=== PATIENT | male | born 1980 | race Hispanic/Latino ===

== ENCOUNTER 2020-03-15 08:40 | Inpatient (IN) | payer OTHER ==
[~2020-03-15] VITALS: Ht 170.2 cm; Wt 60.4 kg
[2020-03-15 09:05] LABS: BASOPHILS % (AUTO) 1.3 % (0.0-5.0); EOSINOPHILS % (AUTO) 10.9 % (0.0-8.0); HEMATOCRIT 29.7 % (42-54); LYMPHOCYTES % (AUTO) 21.9 % (21.0-51.0); MEAN CORPUSCULAR HEMOGLOBIN 29.9 pg (27.0-33.0); MEAN CORPUSCULAR HGB CONC 32.7 g/dL (32.0-36.0); MEAN CORPUSCULAR VOLUME 91.7 fL (79-99); MONOCYTES % (AUTO) 5.7 % (3.0-13.0); NEUTROPHILS % (AUTO) 59.9 % (40.0-77.0); PLATELET COUNT (AUTO) 323 K/uL (130-400); RED BLOOD CELL COUNT(AUTO) 3.24 MIL/uL (4.50-6.20); RED CELL DISTRIBUTION WIDTH 14.6 % (11.0-15.5)
[2020-03-15 09:14] LABS: CREATININE 4.7 mg/dL (0.5-1.5); POTASSIUM 4.1 mmol/L (3.5-5.1)
[2020-03-15 09:19] LABS: BILIRUBIN,TOTAL 0.3 mg/dL (0.2-1.0); TOTAL PROTEIN, SERUM 7.3 g/dL (6.0-8.3)
[2020-03-15 09:20] LABS: INR 0.92 (0.85-1.15); PARTIAL THROMBOPLASTIN TIME 26.6 SEC (26.3-35.5)
[2020-03-15] MEDS ORDERED: NITROGLYCERIN 1GM/1 INCH PACKET TD ONE (09:59)
[2020-03-15] MEDS ORDERED: ONDANSETRON HCL 4 MG/2 ML VIAL IV PRN (11:15)
[2020-03-15] MEDS ORDERED: ACETAMINOPHEN 325 MG TAB PO PRN (11:15)
[2020-03-15] MEDS ORDERED: NITROGLYCERIN 0.4 MG SL TAB SL PRN (11:15)
[2020-03-15] MEDS: INSULIN HUMULIN R 100 UNIT/ML 3ML SQ SCH ×3 (11:30→21:00)
[2020-03-15] MEDS: HEPARIN SODIUM 5000UNIT/ML 1ML VIAL SQ SCH ×2 (14:00→22:20)
[2020-03-15] MEDS ORDERED: INSULIN HUMULIN R 100 UNIT/ML 3ML ONE (18:28)
[2020-03-15] MEDS ORDERED: FAMOTIDINE 20MG TAB 20 MG TAB ONE (20:04)
[2020-03-15] MEDS ORDERED: AMLODIPINE BESYLATE 5 MG TAB ONE (20:04)
[2020-03-15] MEDS: FAMOTIDINE 20MG TAB 20 MG TAB PO SCH (21:00)
[2020-03-15 21:30] VITALS: BP 198/101
[2020-03-15] MEDS ORDERED: FURO40TA5 PO (22:12)
[2020-03-15] MEDS ORDERED: CARV6.25 PO (22:12)
[2020-03-15] MEDS ORDERED: GABA-529 PO (22:12)
--- NOTE | 2020-03-15 22:40 | NUR ---
notified isaiah rodriguez personally about patient's blood pressure of 198/106. she ordered to start carvedilol tonight and i gave 1 tablet it at 22:40. recheck of his blood pressure is 201/96 with heart rate 98. will give labetalol iv 2.5 mg at 23:30.
[2020-03-15] MEDS ORDERED: ASPIRIN 81 MG EC TAB ONE (22:52)
[2020-03-15] MEDS: ASPIRIN 81 MG EC TAB PO SCH (23:00)
[2020-03-15] MEDS: METOPROLOL TARTRATE 1 MG/ML 5ML VIAL IV SCH (23:34)
[2020-03-16 00:45] VITALS: BP 138/77
[2020-03-16 04:04] VITALS: BP 176/86
[2020-03-16 05:09] LABS: BASOPHILS % (AUTO) 1.4 % (0.0-5.0); EOSINOPHILS % (AUTO) 5.2 % (0.0-8.0); LYMPHOCYTES % (AUTO) 26.3 % (21.0-51.0); MEAN CORPUSCULAR HEMOGLOBIN 29.9 pg (27.0-33.0); MEAN CORPUSCULAR HGB CONC 33.5 g/dL (32.0-36.0); MEAN CORPUSCULAR VOLUME 89.3 fL (79-99); MONOCYTES % (AUTO) 6.3 % (3.0-13.0); NEUTROPHILS % (AUTO) 60.5 % (40.0-77.0); PLATELET COUNT (AUTO) 280 K/uL (130-400); RED BLOOD CELL COUNT(AUTO) 2.91 MIL/uL (4.50-6.20); RED CELL DISTRIBUTION WIDTH 14.2 % (11.0-15.5); WHITE BLOOD COUNT (AUTO) 7.3 K/uL (4.8-10.8)
[2020-03-16 05:18] LABS: B-TYPE NATRIURETIC PEPTIDE 1910 pg/mL (0-100)
[2020-03-16 05:27] LABS: HEMOGLOBIN A1C 10.6 % (4.0-6.0)
[2020-03-16 05:44] LABS: ALBUMIN 2.3 g/dL (3.5-5.0); BILIRUBIN,TOTAL 0.3 mg/dL (0.2-1.0); CREATININE 3.2 mg/dL (0.5-1.5); MAGNESIUM 2.1 mg/dL (1.80-2.40); PHOSPHORUS 5.2 mg/dL (2.5-4.9); POTASSIUM 3.6 mmol/L (3.5-5.1); TOTAL PROTEIN, SERUM 6.2 g/dL (6.0-8.3)
[2020-03-16] MEDS: INSULIN HUMULIN R 100 UNIT/ML 3ML SQ SCH ×7 (06:24→20:10)
[2020-03-16] MEDS ORDERED: LABETALOL HCL 5 MG/ML 20ML VIAL IV PRN (07:00)
[2020-03-16] MEDS: INSULIN GLARGINE 100 UNITS/ML 10 ML VIAL SQ SCH ×2 (07:05→20:02)
[2020-03-16 08:15] VITALS: BP 164/93
[2020-03-16] MEDS: FAMOTIDINE 20MG TAB 20 MG TAB PO SCH ×2 (08:49→20:03)
[2020-03-16] MEDS: FUROSEMIDE 40 MG TABLET PO SCH (08:50)
[2020-03-16] MEDS: CARVEDILOL 6.25 MG TABLET PO SCH ×2 (08:50→20:03)
[2020-03-16] MEDS: ASPIRIN 81 MG EC TAB PO SCH (08:50)
[2020-03-16] MEDS: HEPARIN SODIUM 5000UNIT/ML 1ML VIAL SQ SCH ×3 (08:51→20:01)
[2020-03-16 11:39] VITALS: BP 164/106
--- NOTE | 2020-03-16 14:24 | NUR ---
CM NOTE/IA MET WITH PATIENT AT BEDSIDE. PER PATIENT, IS INDEPENDENT WITH ADLS, LIVES WITH MOTHER+NEPHEWSX2 AND NIECE, HAS USE OF ROLLATOR WALKER AND SHOWER CHAIR, ATTENDS [facility], OBTAINS RIDES FOR DIALYSIS FROM MOTHER AND FEELS SAFE TO RETURN HOME ONCE DISCHARGED. PER PATIENT, PCP IS DR. PAUL SCHAEFER AT [facility]. CORRECT MOTHERS PHONE NUMBER IS FOLLOWS: BRANDY MICHEL [phone]. PATIENT CONFIRMED SELF PAY STATUS, [facility] GIVEN WELL SELF REFERRAL/SELF MEDICAL PACKETS. PER PATIENT VERBALIZED UNDERSTANDING AND HAS [facility] ON HIS PHONE. Addendum: 03/16/20 at 1428 by KI MCELROY RN CM Amended: Links added.
[2020-03-16 17:16] VITALS: BP 160/104
[2020-03-16 19:00] VITALS: BP 163/103
[2020-03-16] MEDS: METOPROLOL TARTRATE 1 MG/ML 5ML VIAL IV SCH (22:46)
[2020-03-17] VITALS: BP 154/96
[2020-03-17 04:00] VITALS: BP 179/100
[2020-03-17 04:39] LABS: BASOPHILS % (AUTO) 1.1 % (0.0-5.0); EOSINOPHILS % (AUTO) 10.1 % (0.0-8.0); HEMATOCRIT 29.8 % (42-54); LYMPHOCYTES % (AUTO) 33.8 % (21.0-51.0); MEAN CORPUSCULAR HEMOGLOBIN 29.7 pg (27.0-33.0); MEAN CORPUSCULAR HGB CONC 33.2 g/dL (32.0-36.0); MEAN CORPUSCULAR VOLUME 89.5 fL (79-99); MONOCYTES % (AUTO) 5.7 % (3.0-13.0); NEUTROPHILS % (AUTO) 49.1 % (40.0-77.0); PLATELET COUNT (AUTO) 306 K/uL (130-400); RED BLOOD CELL COUNT(AUTO) 3.33 MIL/uL (4.50-6.20); RED CELL DISTRIBUTION WIDTH 14.6 % (11.0-15.5)
[2020-03-17 05:15] LABS: ALBUMIN 2.6 g/dL (3.5-5.0); BILIRUBIN,TOTAL 0.3 mg/dL (0.2-1.0); CREATININE 4.1 mg/dL (0.5-1.5); POTASSIUM 3.7 mmol/L (3.5-5.1); TOTAL PROTEIN, SERUM 6.6 g/dL (6.0-8.3)
[2020-03-17] MEDS: INSULIN HUMULIN R 100 UNIT/ML 3ML SQ SCH ×5 (06:06→15:07)
[2020-03-17 07:16] LABS: HEPATITIS A ANTIBODY IGM Negative (Negative); HEPATITIS B CORE IGM Negative (Negative); HEPATITIS Bs ANTIGEN SCREEN P Negative (Negative)
--- NOTE | 2020-03-17 07:30 | NUR ---
ASSESSMENT NOTE PT IS AAOX4 , HAS NO CP OR, SOB, VOICES NO PAIN AT THIS TIME, WILL BE RECEIVING HD TODAY.
[2020-03-17 08:37] VITALS: BP 200/115
[2020-03-17] MEDS: CARVEDILOL 6.25 MG TABLET PO SCH (08:43)
[2020-03-17] MEDS: ASPIRIN 81 MG EC TAB PO SCH (08:43)
[2020-03-17] MEDS: FAMOTIDINE 20MG TAB 20 MG TAB PO SCH (08:43)
[2020-03-17] MEDS: FUROSEMIDE 40 MG TABLET PO SCH (08:43)
[2020-03-17] MEDS: HEPARIN SODIUM 5000UNIT/ML 1ML VIAL SQ SCH ×2 (08:55→13:44)
[2020-03-17] MEDS ORDERED: AEC81 PO (09:47)
[2020-03-17 11:35] VITALS: BP 177/101
--- NOTE | 2020-03-17 14:10 | NUR ---
HD ENDED DIALYSIS REMOVED 4 LITERS IN 3 HRS, VS; B/P 180/99, HR 92, TEMP 98.0, NO COMPLAINTS OF PAIN, SOB, OR CP.
[2020-03-17] MEDS ORDERED: INSULIN HUMULIN R 100 UNIT/ML 3ML SQ SCH (15:00)
[2020-03-17] MEDS ORDERED: GLIP5TAB11 PO (15:01)
--- NOTE | 2020-03-17 15:30 | NUR ---
D/C PT IS AAOX4,VS STABLE, DR. SRINIVASAN IS TO F/U WITH PRIMARY 2-[address] VEE 1-2 WEEKS, BS 317 AND GIVE [address] UN[address] MORAN. PT GIVEN D/C INSTRUCTIONS, AND NEW RX MEDS TRANSMITTED TO HIS RX, PT LEFT VIA WHEEL CHAIR IN PVT CAR. NO COMPLICATIONS UPON D/C .
--- NOTE | 2020-03-20 10:38 | NUR ---
Transitional Care -- Post-Discharge Note Called patient at primary phone number on file. Female voice answered stating patient had been admitted to [facility].
== END 2020-03-17 15:55 | disposition home or self-care (01) | DRG 640 ==
LOC: EDH 08:40 → EDHIP 08:41 → 3CH 21:08
PROVIDERS: ADMIT Family Medicine; ATTEND Family Medicine
PROC: 5A1D70Z Performance of Urinary Filtration, Intermittent, Less than 6 Hours Per Day (ICD-10-PCS; principal; 2020-03-15)
PROC: 5A1D70Z Performance of Urinary Filtration, Intermittent, Less than 6 Hours Per Day (ICD-10-PCS; 2020-03-17)
DX: E87.70 Fluid overload, unspecified (principal); N18.6 End stage renal disease; I12.0 Hypertensive chronic kidney disease with stage 5 chronic kidney disease or end stage renal disease; J81.1 Chronic pulmonary edema; E11.22 Type 2 diabetes mellitus with diabetic chronic kidney disease; Z20.828 Contact with and (suspected) exposure to other viral communicable diseases; D63.1 Anemia in chronic kidney disease; I16.0 Hypertensive urgency; Z99.2 Dependence on renal dialysis; Z91.19 Patient's noncompliance with other medical treatment and regimen
CPT/HCPCS: 36415; 71045; 80053; 80074; 82947; 82948; 83036; 83735; 83880; 84100; 84484; 85025; 85610; 85730; 87426; 90935; 93005; G0378; J1644; J1815; J3490; U0003

== ENCOUNTER 2020-06-18 13:02 | Emergency (ER) | payer MEDICARE, OTHER ==
[~2020-06-18 13:02] MED LIST: AEC81 PO; CARV6.25 PO; FURO40TA5 PO; GABA-529 PO; GLIP5TAB11 PO
[2020-06-18] MEDS ORDERED: CARVEDILOL 12.5 MG TABLET PO ONE (13:42)
[2020-06-18] MEDS ORDERED: HYDRALAZINE HCL 10 MG TABLET ONE (13:42)
[2020-06-18] MEDS ORDERED: AMLODIPINE BESYLATE 5 MG TAB ONE (13:42)
== END 2020-06-18 16:29 | disposition home or self-care (01) ==
LOC: EDH 13:02
DX: E11.649 Type 2 diabetes mellitus with hypoglycemia without coma (principal); I12.0 Hypertensive chronic kidney disease with stage 5 chronic kidney disease or end stage renal disease; E11.22 Type 2 diabetes mellitus with diabetic chronic kidney disease; N18.6 End stage renal disease; Z99.2 Dependence on renal dialysis
CPT/HCPCS: 82948

== ENCOUNTER 2021-07-17 20:20 | Inpatient (IN) | payer OTHER, MEDICARE ==
[~2021-07-17] VITALS: Ht 167.6 cm; Wt 59.9 kg
[~2021-07-17 20:20] MED LIST changes: +AMLO-258 PO; -GLIP5TAB11 PO; +HYDR-3420 PO; +INSU100I21 SQ; +INSU100I3 SQ; +LOPE2CAP PO; +SEVE800T7 PO
[2021-07-17 20:54] LABS: BASOPHILS % (AUTO) 0.7 % (0.0-5.0); LYMPHOCYTES % (AUTO) 6.4 % (21.0-51.0); MEAN CORPUSCULAR HEMOGLOBIN 31.9 pg (27.0-33.0); MEAN CORPUSCULAR HGB CONC 32.8 g/dL (32.0-36.0); MEAN CORPUSCULAR VOLUME 97.3 fL (79-99); MONOCYTES % (AUTO) 5.6 % (3.0-13.0); NEUTROPHILS % (AUTO) 79.9 % (40.0-77.0); PLATELET COUNT (AUTO) 303 K/uL (130-400); RED BLOOD CELL COUNT(AUTO) 3.29 MIL/uL (4.50-6.20); RED CELL DISTRIBUTION WIDTH 13.6 % (11.0-15.5); WHITE BLOOD COUNT (AUTO) 15.1 K/uL (4.8-10.8)
[2021-07-17 21:05] LABS: CREATININE 5.1 mg/dL (0.5-1.5); POTASSIUM 5.5 mmol/L (3.5-5.1)
[2021-07-17 21:10] LABS: ALBUMIN 3.5 g/dL (3.5-5.0); BILIRUBIN,TOTAL 0.5 mg/dL (0.2-1.0); TOTAL PROTEIN, SERUM 7.8 g/dL (6.0-8.3)
[2021-07-17] MEDS ORDERED: HYDRALAZINE 25MG TABLET ONE (21:11)
[2021-07-17] MEDS ORDERED: NITROGLYCERIN 1GM OINT 1 INCH/1GM TD ONE ×2 (21:12→21:30)
[2021-07-17 21:15] LABS: B-TYPE NATRIURETIC PEPTIDE 2270 pg/mL (0-100)
[2021-07-17] MEDS ORDERED: FUROSEMIDE 40MG VIAL ONE (21:20)
[2021-07-17 21:24] LABS: ABG BASE EXCESS -2.7 mmol/L (-2.0-3.0); ABG HCO3 22.7 mmol/L (21.0-28.0); ABG OXYGEN SATURATION 98.4 % (95.0-99.0); ABG PCO2 42 mmHg (35-48)
[2021-07-17] MEDS ORDERED: HYDRALAZINE 25MG TABLET PO SCH (21:30)
[2021-07-17] MEDS ORDERED: FUROSEMIDE 40MG VIAL IV ONE (21:30)
[2021-07-17] MEDS ORDERED: INSULIN LISPRO SQ (22:25)
[2021-07-17] MEDS ORDERED: AMLO-258 PO (22:25)
[2021-07-17] MEDS ORDERED: INSU100I68 SQ ×2 (22:25)
[2021-07-17] MEDS ORDERED: HYDR-4154 PO (22:25)
[2021-07-17] MEDS ORDERED: INSULIN (22:25)
[2021-07-17] MEDS ORDERED: GABA-529 PO (22:25)
[2021-07-17] MEDS ORDERED: MONT-39 PO (22:25)
[2021-07-17] MEDS ORDERED: CARV25TA PO (22:25)
[2021-07-17] MEDS ORDERED: ATOR20TA65 PO (22:25)
[2021-07-17] MEDS ORDERED: SERT-439 PO (22:25)
[2021-07-17] MEDS ORDERED: ONDANSETRON 4MG INJ IVP PRN (23:00)
[2021-07-17] MEDS ORDERED: FUROSEMIDE 40MG VIAL IV SCH (23:00)
[2021-07-17] MEDS: HEPARIN 5,000 UNIT VIAL SQ SCH (23:41)
[2021-07-18] VITALS (34 sets, daily range): BP systolic 99–170; BP diastolic 59–84
[2021-07-18] MEDS ORDERED: CEFTRIAXONE 1G VIAL IVP SCH (01:30)
[2021-07-18] MEDS ORDERED: 0.9%NACL 10ML VIAL ONE (02:06)
[2021-07-18] MEDS: AZITHROMYCIN 500MG+NS 250ML IVPB SCH (02:10)
[2021-07-18] MEDS: HEPARIN 5,000 UNIT VIAL SQ SCH ×3 (06:16→22:27)
[2021-07-18 07:09] LABS: BASOPHILS % (AUTO) 0.5 % (0.0-5.0); EOSINOPHILS % (AUTO) 0.4 % (0.0-8.0); LYMPHOCYTES % (AUTO) 5.6 % (21.0-51.0); MEAN CORPUSCULAR HEMOGLOBIN 31.8 pg (27.0-33.0); MEAN CORPUSCULAR HGB CONC 32.5 g/dL (32.0-36.0); MEAN CORPUSCULAR VOLUME 97.9 fL (79-99); MONOCYTES % (AUTO) 6.6 % (3.0-13.0); NEUTROPHILS % (AUTO) 86.5 % (40.0-77.0); PLATELET COUNT (AUTO) 249 K/uL (130-400); RED BLOOD CELL COUNT(AUTO) 2.86 MIL/uL (4.50-6.20); RED CELL DISTRIBUTION WIDTH 13.8 % (11.0-15.5); WHITE BLOOD COUNT (AUTO) 14.6 K/uL (4.8-10.8)
[2021-07-18 07:28] LABS: ALBUMIN 3.1 g/dL (3.5-5.0); BILIRUBIN,TOTAL 0.6 mg/dL (0.2-1.0); TOTAL PROTEIN, SERUM 7.2 g/dL (6.0-8.3)
[2021-07-18] MEDS ORDERED: ACETAMINOPHEN 325 MG TAB PO PRN (07:30)
[2021-07-18 07:31] LABS: POTASSIUM 6.3 mmol/L (3.5-5.1)
[2021-07-18] MEDS: ACETAMINOPHEN 325 MG TAB PO PRN ×2 (08:21→18:39)
[2021-07-18] MEDS: AMLODIPINE 5 MG TAB PO SCH (08:22)
[2021-07-18] MEDS: HYDRALAZINE 25MG TABLET PO SCH ×3 (08:22→20:11)
[2021-07-18] MEDS: CARVEDILOL 25 MG TABLET PO SCH ×2 (08:24→20:10)
[2021-07-18] MEDS ORDERED: DEXTROSE 50%-WATER 50 ML DISP.SYRIN IV SCH (08:30)
[2021-07-18] MEDS ORDERED: SODIUM BICARB 50MEQ 50ML VIAL IV SCH (08:30)
[2021-07-18] MEDS ORDERED: IPRATROPIUM/ALBUTEROL SULFATE 3 ML SOLUTION IH SCH (08:30)
[2021-07-18] MEDS ORDERED: PHARMACY COMMUNICATION MISC SCH ×2 (08:30→09:30)
[2021-07-18] MEDS ORDERED: SODIUM BICARB 8.4% 50ML SYRINGE IVP SCH (08:30)
[2021-07-18] MEDS ORDERED: INSULIN HUMULIN R 100 UNIT/ML 3ML SQ SCH ×2 (08:30→11:30)
[2021-07-18] MEDS ORDERED: GABAPENTIN 100 MG CAPSULE PO SCH (09:00)
[2021-07-18] MEDS ORDERED: NA ZIRCON CYCLOSIL(LOKELMA 10GM) PO SCH (09:30)
[2021-07-18] MEDS ORDERED: VANCOMYCIN PROTOCOL PER PHARMACY IV SCH (09:30)
[2021-07-18 09:38] LABS: INR 1.09 (0.85-1.15); PROTHROMBIN TIME 11.8 SEC (9.6-11.6)
[2021-07-18 09:40] LABS: PARTIAL THROMBOPLASTIN TIME 30.2 SEC (26.3-35.5)
[2021-07-18] MEDS: IPRATROPIUM/ALBUTEROL SULFATE 3 ML SOLUTION IH SCH ×3 (11:16→23:11)
[2021-07-18] MEDS: ACETYLCYSTEINE 10% 100MG/ML 4ML VIAL IH SCH ×3 (11:16→23:11)
[2021-07-18 11:20] LABS: AMMONIA < 10 umol/L (11-32); THYROID STIMULATING HORMONE 1.05 uIU/mL (0.36-3.74)
[2021-07-18] MEDS: MEROPENEM 500 MG VIAL IVP SCH ×2 (13:43→20:11)
[2021-07-18] MEDS: VANCOMYCIN 1G/250ML KIT 250 ML IV SCH (13:43)
[2021-07-18] MEDS: INSULIN HUMULIN R 100 UNIT/ML 3ML SQ SCH ×3 (13:46→23:18)
[2021-07-18 14:03] LABS: CREATININE 2.9 mg/dL (0.5-1.5); POTASSIUM 3.6 mmol/L (3.5-5.1)
[2021-07-18 18:31] LABS: HEPATITIS B SURFACE ANTIGEN Non-Reactive (Negative)
[2021-07-18] MEDS: BUDESONIDE 0.5 MG/2 ML INH IH SCH (18:40)
[2021-07-18] MEDS: MONTELUKAST SODIUM 10 MG TAB PO SCH (20:10)
[2021-07-18] MEDS: ATORVASTATIN 20 MG TABLET PO SCH (20:10)
[2021-07-18] MEDS ORDERED: SERTRALINE HCL 50 MG TABLET PO SCH (21:00)
[2021-07-19] VITALS (17 sets, daily range): BP systolic 116–154; BP diastolic 66–85
[2021-07-19] MEDS: AZITHROMYCIN 500MG+NS 250ML IVPB SCH (00:50)
[2021-07-19 04:23] LABS: ALBUMIN 2.7 g/dL (3.5-5.0); BILIRUBIN,TOTAL 0.5 mg/dL (0.2-1.0); CREATININE 4.1 mg/dL (0.5-1.5); MAGNESIUM 2.3 mg/dL (1.80-2.40); PHOSPHORUS 5.7 mg/dL (2.5-4.9); POTASSIUM 4.7 mmol/L (3.5-5.1)
[2021-07-19] MEDS: INSULIN HUMULIN R 100 UNIT/ML 3ML SQ SCH ×4 (05:44→20:40)
[2021-07-19] MEDS: HEPARIN 5,000 UNIT VIAL SQ SCH ×3 (05:45→20:33)
[2021-07-19] MEDS: IPRATROPIUM/ALBUTEROL SULFATE 3 ML SOLUTION IH SCH ×4 (07:03→23:09)
[2021-07-19] MEDS: ACETYLCYSTEINE 10% 100MG/ML 4ML VIAL IH SCH ×4 (07:03→23:09)
[2021-07-19] MEDS: BUDESONIDE 0.5 MG/2 ML INH IH SCH ×2 (07:04→18:26)
[2021-07-19 07:29] LABS: MEAN CORPUSCULAR HEMOGLOBIN 30.9 pg (27.0-33.0); MEAN CORPUSCULAR HGB CONC 31.3 g/dL (32.0-36.0); MEAN CORPUSCULAR VOLUME 98.7 fL (79-99); RED BLOOD CELL COUNT(AUTO) 3.04 MIL/uL (4.50-6.20); RED CELL DISTRIBUTION WIDTH 13.3 % (11.0-15.5); WHITE BLOOD COUNT (AUTO) 12.9 K/uL (4.8-10.8)
[2021-07-19] MEDS: HYDRALAZINE 25MG TABLET PO SCH ×3 (09:12→20:21)
[2021-07-19] MEDS: AMLODIPINE 5 MG TAB PO SCH (09:12)
[2021-07-19] MEDS: Vitamin B Complex/Vit C/Folic Acid PO SCH (09:12)
[2021-07-19] MEDS: MEROPENEM 500 MG VIAL IVP SCH ×2 (09:13→20:21)
[2021-07-19] MEDS: CARVEDILOL 25 MG TABLET PO SCH ×2 (09:13→20:22)
[2021-07-19] MEDS: ATORVASTATIN 20 MG TABLET PO SCH (20:21)
[2021-07-19] MEDS: MONTELUKAST SODIUM 10 MG TAB PO SCH (20:21)
[2021-07-20] VITALS (23 sets, daily range): BP systolic 113–170; BP diastolic 54–91
[2021-07-20] MEDS ORDERED: 0.9% NACL 250ML 250 ML ONE (00:56)
[2021-07-20] MEDS: AZITHROMYCIN 500MG+NS 250ML IVPB SCH (01:02)
[2021-07-20] MEDS: HEPARIN 5,000 UNIT VIAL SQ SCH ×3 (05:01→23:00)
[2021-07-20 05:09] LABS: HEMATOCRIT 25.8 % (42-54); MEAN CORPUSCULAR HEMOGLOBIN 31.5 pg (27.0-33.0); MEAN CORPUSCULAR HGB CONC 32.6 g/dL (32.0-36.0); MEAN CORPUSCULAR VOLUME 96.6 fL (79-99); RED BLOOD CELL COUNT(AUTO) 2.67 MIL/uL (4.50-6.20); RED CELL DISTRIBUTION WIDTH 13.3 % (11.0-15.5); WHITE BLOOD COUNT (AUTO) 8.9 K/uL (4.8-10.8)
[2021-07-20 05:19] LABS: CREATININE 5.9 mg/dL (0.5-1.5); POTASSIUM 4.8 mmol/L (3.5-5.1)
[2021-07-20] MEDS ORDERED: INSULIN HUMULIN R 100 UNIT/ML 3ML ONE (05:48)
[2021-07-20] MEDS: INSULIN HUMULIN R 100 UNIT/ML 3ML SQ SCH ×4 (05:59→21:00)
[2021-07-20] MEDS: IPRATROPIUM/ALBUTEROL SULFATE 3 ML SOLUTION IH SCH ×3 (06:25→17:04)
[2021-07-20] MEDS: ACETYLCYSTEINE 10% 100MG/ML 4ML VIAL IH SCH ×3 (06:25→17:04)
[2021-07-20] MEDS: BUDESONIDE 0.5 MG/2 ML INH IH SCH ×2 (06:25→17:11)
[2021-07-20] MEDS ORDERED: INSULIN HUMULIN R 100 UNIT/ML 3ML SQ SCH (07:30)
[2021-07-20] MEDS: Vitamin B Complex/Vit C/Folic Acid PO SCH (10:13)
[2021-07-20] MEDS: CARVEDILOL 25 MG TABLET PO SCH ×2 (10:13→22:16)
[2021-07-20] MEDS: MEROPENEM 500 MG VIAL IVP SCH ×2 (10:14→22:16)
[2021-07-20] MEDS: HYDRALAZINE 25MG TABLET PO SCH ×3 (10:14→22:15)
[2021-07-20] MEDS: AMLODIPINE 5 MG TAB PO SCH (10:14)
[2021-07-20] MEDS: VANCOMYCIN 1G/250ML KIT 250 ML IV SCH (11:21)
[2021-07-20] MEDS ORDERED: EPOETIN ALFA-EPBX (ESRD) 10,000 UNIT/ML VIAL SQ SCH (12:00)
[2021-07-20] MEDS: ATORVASTATIN 20 MG TABLET PO SCH (22:15)
[2021-07-20] MEDS: MONTELUKAST SODIUM 10 MG TAB PO SCH (22:15)
[2021-07-20] MEDS: ACETAMINOPHEN 325 MG TAB PO PRN (23:17)
[2021-07-21] VITALS (17 sets, daily range): BP systolic 112–167; BP diastolic 47–77
[2021-07-21] MEDS ORDERED: LORAZEPAM 2 MG/ML 1 ML VIAL IVP ONE (01:30)
[2021-07-21] MEDS: AZITHROMYCIN 500MG+NS 250ML IVPB SCH (01:49)
[2021-07-21] MEDS: HYDRALAZINE 25MG TABLET PO SCH ×4 (06:00→23:27)
[2021-07-21] MEDS: BUDESONIDE 0.5 MG/2 ML INH IH SCH ×2 (06:00→18:40)
[2021-07-21] MEDS: ACETYLCYSTEINE 10% 100MG/ML 4ML VIAL IH SCH ×4 (06:44→18:40)
[2021-07-21] MEDS: IPRATROPIUM/ALBUTEROL SULFATE 3 ML SOLUTION IH SCH ×4 (06:44→18:41)
[2021-07-21 08:09] LABS: HEMATOCRIT 27.5 % (42-54); MEAN CORPUSCULAR HEMOGLOBIN 30.6 pg (27.0-33.0); MEAN CORPUSCULAR HGB CONC 30.2 g/dL (32.0-36.0); MEAN CORPUSCULAR VOLUME 101.5 fL (79-99); PLATELET COUNT (AUTO) 228 K/uL (130-400); RED BLOOD CELL COUNT(AUTO) 2.71 MIL/uL (4.50-6.20); RED CELL DISTRIBUTION WIDTH 14.1 % (11.0-15.5); WHITE BLOOD COUNT (AUTO) 5.4 K/uL (4.8-10.8)
[2021-07-21 08:21] LABS: CREATININE 5.8 mg/dL (0.5-1.5); POTASSIUM 5.7 mmol/L (3.5-5.1)
[2021-07-21] MEDS: INSULIN HUMULIN R 100 UNIT/ML 3ML SQ SCH (08:23)
[2021-07-21 08:55] LABS: ALBUMIN 2.8 g/dL (3.5-5.0); BILIRUBIN,TOTAL 0.5 mg/dL (0.2-1.0); TOTAL PROTEIN, SERUM 6.9 g/dL (6.0-8.3)
[2021-07-21] MEDS ORDERED: INSULIN HUMULIN R 100 UNIT/ML 3ML SQ SCH (09:00)
[2021-07-21] MEDS: CARVEDILOL 25 MG TABLET PO SCH (09:00)
[2021-07-21] MEDS: Vitamin B Complex/Vit C/Folic Acid PO SCH (09:00)
[2021-07-21] MEDS: AMLODIPINE 5 MG TAB PO SCH (09:00)
[2021-07-21] MEDS ORDERED: 0.9% NACL 250ML 250 ML ONE (09:29)
[2021-07-21] MEDS ORDERED: 0.9% NACL 250ML 250 ML IV SCH (09:30)
[2021-07-21] MEDS ORDERED: HYDRALAZINE 20MG/ML VIAL IV PRN (10:00)
[2021-07-21] MEDS ORDERED: METOPROLOL TARTRATE 1 MG/ML 5ML VIAL IV PRN (10:00)
[2021-07-21] MEDS ORDERED: POTASSIUM CHLORIDE 10MEQ/100ML 100 ML IV PRN (10:00)
[2021-07-21] MEDS: 0.9%NACL 1000ML 1,000 ML IV SCH ×3 (10:15→20:00)
[2021-07-21] MEDS: MEROPENEM 500 MG VIAL IVP SCH ×2 (10:15→20:17)
[2021-07-21] MEDS: INSULIN REGULAR, HUMAN 3ML 100 UNIT in 0.9%NACL 100ML 99 ML IV PRN ×4 (10:40→18:47)
[2021-07-21] MEDS: HEPARIN 5,000 UNIT VIAL SQ SCH ×3 (10:40→23:29)
[2021-07-21] MEDS ORDERED: NA ZIRCON CYCLOSIL(LOKELMA 10GM) PO SCH (12:30)
[2021-07-21] MEDS ORDERED: INSULIN HUMULIN R 100 UNIT/ML 3ML IV ONE (13:30)
[2021-07-21 14:54] LABS: CREATININE 6.1 mg/dL (0.5-1.5); POTASSIUM 4.7 mmol/L (3.5-5.1)
[2021-07-21 15:12] LABS: ABG BASE EXCESS -2.7 mmol/L (-2.0-3.0); ABG HCO3 22.3 mmol/L (21.0-28.0); ABG OXYGEN SATURATION 97.2 % (95.0-99.0); ABG PCO2 39 mmHg (35-48)
[2021-07-21] MEDS: DEXTROSE 5 %-0.45 % NACL 1,000 ML IV PRN (18:20)
[2021-07-21] MEDS: MONTELUKAST SODIUM 10 MG TAB PO SCH (20:17)
[2021-07-21 20:23] LABS: POTASSIUM 4.2 mmol/L (3.5-5.1)
[2021-07-22] VITALS (14 sets, daily range): BP systolic 113–169; BP diastolic 41–98
[2021-07-22 00:44] LABS: CREATININE 6.2 mg/dL (0.5-1.5); POTASSIUM 4.3 mmol/L (3.5-5.1)
[2021-07-22] MEDS: 0.9%NACL 1000ML 1,000 ML IV SCH ×5 (01:00→20:55)
[2021-07-22] MEDS: DEXTROSE 5 %-0.45 % NACL 1,000 ML IV PRN (01:12)
[2021-07-22] MEDS: AZITHROMYCIN 500MG+NS 250ML IVPB SCH (01:31)
[2021-07-22] MEDS: IPRATROPIUM/ALBUTEROL SULFATE 3 ML SOLUTION IH SCH ×4 (06:00→18:00)
[2021-07-22] MEDS: BUDESONIDE 0.5 MG/2 ML INH IH SCH ×2 (06:00→18:00)
[2021-07-22] MEDS: ACETYLCYSTEINE 10% 100MG/ML 4ML VIAL IH SCH ×4 (06:00→18:00)
[2021-07-22] MEDS: HYDRALAZINE 25MG TABLET PO SCH ×4 (06:26→23:40)
[2021-07-22] MEDS: HEPARIN 5,000 UNIT VIAL SQ SCH ×4 (06:49→22:21)
[2021-07-22 07:18] LABS: EOSINOPHILS % (AUTO) 30.1 % (0.0-8.0); HEMATOCRIT 30.1 % (42-54); LYMPHOCYTES % (AUTO) 27.2 % (21.0-51.0); MEAN CORPUSCULAR HEMOGLOBIN 30.3 pg (27.0-33.0); MEAN CORPUSCULAR HGB CONC 32.2 g/dL (32.0-36.0); MEAN CORPUSCULAR VOLUME 94.1 fL (79-99); MONOCYTES % (AUTO) 10.4 % (3.0-13.0); NEUTROPHILS % (AUTO) 31.1 % (40.0-77.0); PLATELET COUNT (AUTO) 270 K/uL (130-400); RED CELL DISTRIBUTION WIDTH 13.2 % (11.0-15.5); WHITE BLOOD COUNT (AUTO) 6.2 K/uL (4.8-10.8)
[2021-07-22] MEDS: MEROPENEM 500 MG VIAL IVP SCH ×2 (08:16→20:49)
[2021-07-22] MEDS: INSULIN GLARGINE 100 UNITS/ML 10 ML VIAL SQ SCH (08:18)
[2021-07-22 08:26] LABS: CREATININE 6.1 mg/dL (0.5-1.5); MAGNESIUM 2.2 mg/dL (1.80-2.40); PHOSPHORUS 6.7 mg/dL (2.5-4.9); POTASSIUM 4.3 mmol/L (3.5-5.1)
[2021-07-22] MEDS: VANCOMYCIN 1G/250ML KIT 250 ML IV SCH (11:27)
[2021-07-22] MEDS: INSULIN HUMULIN R 100 UNIT/ML 3ML SQ SCH ×4 (11:28→20:55)
[2021-07-22] MEDS ORDERED: INSULIN HUMULIN R 100 UNIT/ML 3ML SQ SCH (11:30)
[2021-07-22] MEDS: MONTELUKAST SODIUM 10 MG TAB PO SCH (20:49)
[2021-07-22] MEDS ORDERED: CLONIDINE HCL 0.1 MG TABLET PO ONE (22:30)
[2021-07-23] VITALS (19 sets, daily range): BP systolic 131–162; BP diastolic 51–94
[2021-07-23] MEDS: AZITHROMYCIN 500MG+NS 250ML IVPB SCH (00:53)
[2021-07-23] MEDS: 0.9%NACL 1000ML 1,000 ML IV SCH ×2 (02:00→07:00)
[2021-07-23] MEDS: IPRATROPIUM/ALBUTEROL SULFATE 3 ML SOLUTION IH SCH ×2 (06:00)
[2021-07-23] MEDS: BUDESONIDE 0.5 MG/2 ML INH IH SCH (06:00)
[2021-07-23] MEDS: ACETYLCYSTEINE 10% 100MG/ML 4ML VIAL IH SCH ×2 (06:00)
[2021-07-23 06:19] LABS: HEMATOCRIT 27.4 % (42-54); MEAN CORPUSCULAR HEMOGLOBIN 31.7 pg (27.0-33.0); MEAN CORPUSCULAR HGB CONC 33.9 g/dL (32.0-36.0); MEAN CORPUSCULAR VOLUME 93.5 fL (79-99); PLATELET COUNT (AUTO) 281 K/uL (130-400); RED BLOOD CELL COUNT(AUTO) 2.93 MIL/uL (4.50-6.20); RED CELL DISTRIBUTION WIDTH 13.2 % (11.0-15.5); WHITE BLOOD COUNT (AUTO) 7.8 K/uL (4.8-10.8)
[2021-07-23] MEDS: HYDRALAZINE 25MG TABLET PO SCH ×3 (06:30→17:28)
[2021-07-23] MEDS: HEPARIN 5,000 UNIT VIAL SQ SCH ×2 (06:31→15:21)
[2021-07-23 06:47] LABS: ALBUMIN 2.3 g/dL (3.5-5.0); BILIRUBIN,TOTAL 0.3 mg/dL (0.2-1.0); CREATININE 7.3 mg/dL (0.5-1.5); MAGNESIUM 2.2 mg/dL (1.80-2.40); PHOSPHORUS 7.2 mg/dL (2.5-4.9); POTASSIUM 4.7 mmol/L (3.5-5.1); TOTAL PROTEIN, SERUM 6.3 g/dL (6.0-8.3)
[2021-07-23 07:02] LABS: BASOPHILS % (MANUAL) 1 % (0-2); EOSINOPHILS % (MANUAL) 25 % (1-6); LYMPHOCYTES % (MANUAL) 19 % (22-44); MAN.DIFF COMMENT-IMPRESSION MANUAL DIFFERENTIAL; MONOCYTES % (MANUAL) 5 % (2-9); PLATELET MORPHOLOGY COMMENT ADEQUATE; SEGMENTED NEUTROPHILS % 50 % (40-70)
[2021-07-23] MEDS: INSULIN HUMULIN R 100 UNIT/ML 3ML SQ SCH ×7 (07:30→21:00)
[2021-07-23] MEDS: INSULIN GLARGINE 100 UNITS/ML 10 ML VIAL SQ SCH (08:30)
[2021-07-23] MEDS: MEROPENEM 500 MG VIAL IVP SCH ×2 (12:43→20:03)
[2021-07-23] MEDS ORDERED: EPOETIN ALFA-EPBX (ESRD) 10,000 UNIT/ML VIAL SQ SCH (14:30)
[2021-07-23] MEDS: MONTELUKAST SODIUM 10 MG TAB PO SCH (21:09)
[2021-07-24] VITALS: BP 168/95
[2021-07-24] MEDS: HYDRALAZINE 25MG TABLET PO SCH ×2 (00:14→05:17)
[2021-07-24] MEDS: HEPARIN 5,000 UNIT VIAL SQ SCH ×2 (00:16→06:45)
[2021-07-24] MEDS: AZITHROMYCIN 500MG+NS 250ML IVPB SCH (01:11)
[2021-07-24 03:57] VITALS: BP 176/86
[2021-07-24 05:13] LABS: EOSINOPHILS % (AUTO) 16.8 % (0.0-8.0); HEMATOCRIT 30.5 % (42-54); LYMPHOCYTES % (AUTO) 30.3 % (21.0-51.0); MEAN CORPUSCULAR HEMOGLOBIN 30.5 pg (27.0-33.0); MEAN CORPUSCULAR HGB CONC 32.8 g/dL (32.0-36.0); MONOCYTES % (AUTO) 11.2 % (3.0-13.0); NEUTROPHILS % (AUTO) 40.4 % (40.0-77.0); PLATELET COUNT (AUTO) 283 K/uL (130-400); RED BLOOD CELL COUNT(AUTO) 3.28 MIL/uL (4.50-6.20); RED CELL DISTRIBUTION WIDTH 13.1 % (11.0-15.5); WHITE BLOOD COUNT (AUTO) 6.7 K/uL (4.8-10.8)
[2021-07-24 05:41] LABS: CREATININE 5.4 mg/dL (0.5-1.5); POTASSIUM 4.1 mmol/L (3.5-5.1)
[2021-07-24] MEDS: INSULIN HUMULIN R 100 UNIT/ML 3ML SQ SCH ×2 (06:12→06:46)
[2021-07-24 08:00] VITALS: BP 178/86
[2021-07-24] MEDS: INSULIN GLARGINE 100 UNITS/ML 10 ML VIAL SQ SCH (08:30)
[2021-07-24] MEDS: MEROPENEM 500 MG VIAL IVP SCH (09:40)
[2021-07-24 12:00] VITALS: BP 110/53
== END 2021-07-24 09:53 | disposition left against medical advice (07) | DRG 871 ==
LOC: EDH 20:20 → EDHIP 22:15 → 2DH 23:38 → 2BH 07-18 09:15 → 2CH 07-18 09:27 → 3CH 07-19 09:57 → 2CH 07-21 09:45 → 3CH 07-22 22:01
PROVIDERS: ADMIT Hospitalist; ATTEND Hospitalist
PROC: 5A0935A Assistance with Respiratory Ventilation, Less than 24 Consecutive Hours, High Flow/Velocity Cannula (ICD-10-PCS; principal; 2021-07-17)
PROC: 5A1D70Z Performance of Urinary Filtration, Intermittent, Less than 6 Hours Per Day (ICD-10-PCS; 2021-07-18)
PROC: 5A1D70Z Performance of Urinary Filtration, Intermittent, Less than 6 Hours Per Day (ICD-10-PCS; 2021-07-20)
PROC: 5A1D70Z Performance of Urinary Filtration, Intermittent, Less than 6 Hours Per Day (ICD-10-PCS; 2021-07-23)
DX: A41.9 Sepsis, unspecified organism (principal); E11.00 Type 2 diabetes mellitus with hyperosmolarity without nonketotic hyperglycemic-hyperosmolar coma (NKHHC); J18.9 Pneumonia, unspecified organism; N18.6 End stage renal disease; G93.41 Metabolic encephalopathy; I50.33 Acute on chronic diastolic (congestive) heart failure; R65.21 Severe sepsis with septic shock; J80 Acute respiratory distress syndrome; E87.1 Hypo-osmolality and hyponatremia; I13.2 Hypertensive heart and chronic kidney disease with heart failure and with stage 5 chronic kidney disease, or end stage renal disease; I24.8 Other forms of acute ischemic heart disease; G93.49 Other encephalopathy; I16.1 Hypertensive emergency; N17.9 Acute kidney failure, unspecified; E87.70 Fluid overload, unspecified; E11.22 Type 2 diabetes mellitus with diabetic chronic kidney disease; E87.5 Hyperkalemia; E87.8 Other disorders of electrolyte and fluid balance, not elsewhere classified; E78.5 Hyperlipidemia, unspecified; D63.1 Anemia in chronic kidney disease; E66.9 Obesity, unspecified; E11.40 Type 2 diabetes mellitus with diabetic neuropathy, unspecified; S31.000A Unspecified open wound of lower back and pelvis without penetration into retroperitoneum, initial encounter; E11.65 Type 2 diabetes mellitus with hyperglycemia; Z68.29 Body mass index [BMI] 29.0-29.9, adult; Z99.2 Dependence on renal dialysis; Z20.822 Contact with and (suspected) exposure to COVID-19; Z91.19 Patient's noncompliance with other medical treatment and regimen; Z53.29 Procedure and treatment not carried out because of patient's decision for other reasons; Z83.3 Family history of diabetes mellitus; X58.XXXA Exposure to other specified factors, initial encounter; Y93.89 Activity, other specified; Y92.89 Other specified places as the place of occurrence of the external cause; Y99.8 Other external cause status
CPT/HCPCS: 36415; 36600; 71045; 80048; 80053; 80202; 82140; 82435; 82550; 82803; 82947; 82948; 83605; 83735; 83880; 84100; 84132; 84145; 84295; 84443; 84484; 85018; 85025; 85027; 85378; 85384; 85610; 85651; 85730; 86140; 86704; 86706; 87040; 87071; 87205; 87340; 87635; 87804; 90935; 92610; 93005; 93306; 93356; 94640; 94667; 94668; 94760; 97039; 99291; G0378; J0456; J0696; J1644; J1815; J1940; J2060; J2185; J2405; J3370; J3490; J7030; J7042; J7050; J7070; J7608